=== PATIENT | male | born 2000 | race Caucasian/White ===

== ENCOUNTER 2021-01-08 13:33 | Emergency (ER) | payer OTHER, SELFPAY ==
--- NOTE | ~2021-01-08 | XR_ITS ---
EXAMINATION: XR chest 1V portable INDICATION: Cough TECHNIQUE: Portable AP chest at 1357 hours COMPARISON: None available FINDINGS: There are patchy airspace opacities of the left mid and lower lung zones. No pleural effusi on or pneumothorax is identified. The cardiomediastinal silhouette is normal. The visualized osseous structures are unremarkable. IMPRESSION: 1. Patchy opacities of the left mid and lower lung zones, likely pneumonia. Reviewed, dictated and finalized at location A.
[2021-01-08 13:41] VITALS: BP 131/87; PULSE 74; RESP 20; TEMP 36.5; O2SAT 98
--- NOTE | 2021-01-08 14:18 | ED.GENADULT ---
HPI - General Adult General Chief complaint: Upper Respiratory Infection Stated complaint: cough/congestion Time Seen by Provider: 01/08/21 13:45 Source: patient, family and RN notes reviewed Mode of arrival: ambulatory Limitations: no limitations History of Present Illness HPI narrative: Patient is a 20-year-old male who presents to emergency department for evaluation of 4 days duration of inability to smell or taste with congestion rhinorrhea sore throat nonproductive cough. Patient also presents with a family member with the same symptoms. Patient notes he has had a few episodes of emesis. Patient with history of e-cigarette use. Related Data Allergies Allergy/AdvReac Type Severity Reaction Status Date / Time amoxicillin [From Augmentin] Allergy Unknown Verified 01/08/21 13:42 clavulanic acid Allergy Unknown Verified 01/08/21 13:42 [From Augmentin] Review of Systems Review of Systems: All systems reviewed & are unremarkable except as noted in HPI and below PMFSH Social History Social History (Updated 01/08/21 @ 14:19 by Chiki Leavitt PA-C) Tobacco type: e-cigarettes/vaping Gender identity (if verbalized by the patient): Male Exam Narrative: Exam Narrative: GENERAL: Well-appearing, well-nourished, and in no acute distress. HEAD: Normocephalic, atraumatic. EYES: PERRLA and EOMI. ENT: Nares clear, no rhinorrhea or epistaxis. Mucous membranes moist. CHEST: Clear to auscultation. No respiratory distress. No wheezes rales or rhonchi HEART: Regular rate and rhythm. No murmur heard. EXTREMITIES: Normal range of motion. No edema. SKIN: Warm, dry, no rash. NEURO: No focal deficits. Alert and oriented x3. Cranial nerves II through XII grossly intact PSYCH: Normal mood and affect. Course Course Emergency Course: Patient evaluated for upper respiratory symptoms tested for Covid negative chest radiograph. No hypoxemia no pneumonia. ABCs and vital signs intact and stable felt appropriate for outpatient reevaluation given primary care follow-up advised that he will need to contact primary to initiate follow-up and to obtain COVID-19 results is also been advised to purchase a home oximeter to watch oxygenation Vital Signs Vital signs: Vital Signs Temperature 97.7 F 01/08/21 13:41 Pulse Rate 74 01/08/21 13:41 Respiratory Rate 20 01/08/21 13:41 Blood Pressure 131/87 01/08/21 13:41 Pulse Oximetry 98 01/08/21 13:41 Temperature 97.7 F 01/08/21 13:41 Pulse Rate 74 01/08/21 13:41 Respiratory Rate 20 01/08/21 13:41 Blood Pressure 131/87 01/08/21 13:41 Pulse Oximetry 98 01/08/21 13:41 Medical Decision Making MDM Narrative Medical decision making narrative: Patient with upper respiratory symptoms in the room aware of case findings treatment plan and diagnosis agreeing to follow-up as instructed aware of case findings treatment plan diagnosis afebrile nontoxic-appearing no distress and felt appropriate for outpatient reevaluation Vital Signs Vital Signs: Vital Signs Temperature 97.7 F 01/08/21 13:41 Pulse Rate 74 01/08/21 13:41 Respiratory Rate 20 01/08/21 13:41 Blood Pressure 131/87 01/08/21 13:41 Pulse Oximetry 98 01/08/21 13:41 Temperature 97.7 F 01/08/21 13:41 Pulse Rate 74 01/08/21 13:41 Respiratory Rate 20 01/08/21 13:41 Blood Pressure 131/87 01/08/21 13:41 Pulse Oximetry 98 01/08/21 13:41 Imaging Data Radiologist's impression: Negative chest radiograph Discharge Plan Discharge Clinical Impression: Upper respiratory infection Patient Disposition: Home, Self-Care Condition: Stable Instructions: Antibiotic Form, COVID-19 (Coronavirus Disease 2019) (ED) Additional Instructions: Follow up with your primary care provider within 1-2 days for reevaluation and to obtain your COVID-19 results. Go to ER for shortness of breath, difficulty breathing, chest pain, fever/chills, weakness, nauseau/vomitting, etc. or any other
[2021-01-09 20:08] LABS: SARS-CoV-2 RNA PCR Positive
== END 2021-01-08 14:45 | disposition home or self-care (01) ==
PROVIDERS: Emergency Medicine Emergency Medical Services; Emergency Provider Emergency Medicine
DX: U07.1 COVID-19 (principal); J06.9 Acute upper respiratory infection, unspecified; F17.290 Nicotine dependence, other tobacco product, uncomplicated; R91.8 Other nonspecific abnormal finding of lung field
CPT/HCPCS: 71045; 99283; C9803; U0003; U0005